=== PATIENT | male | born 1955 | race Caucasian/White ===

== ENCOUNTER 2022-07-30 08:06 | Day surgery (SDC) | payer OTHER ==
[2022-07-28 15:27] VITALS: BMI 31.6
[2022-07-30 08:23] VITALS: TEMP 97.9
[2022-07-30 09:20] VITALS: RESP 18
[2022-07-30 09:21] VITALS: BP 101/74; PULSE 75
== END 2022-07-30 09:25 | disposition home or self-care (01) ==
LOC: FASU-ENDO 08:06
PROVIDERS: ATTEND Internal Medicine Gastroenterology
PROC: 0DJD8ZZ Inspection of Lower Intestinal Tract, Via Natural or Artificial Opening Endoscopic (ICD-10-PCS; principal; 2022-07-30 08:35)
DX: Z12.11 Encounter for screening for malignant neoplasm of colon (principal); K57.30 Diverticulosis of large intestine without perforation or abscess without bleeding; Z86.010 Personal history of colon polyps